=== PATIENT | female | born 1990 | race Caucasian/White ===

== ENCOUNTER 2018-06-02 18:45 | Emergency (ER) | payer SELFPAY ==
[~2018-06-02] VITALS: Ht 149.9 cm; Wt 61.2 kg
[~2018-06-02 18:45] MED LIST: AZITHROMYCIN250 MG PO; BACLOFEN10 MG PO; CYCLOBENZAPRINE10 MG PO; HYDROXYZINE HCL25 MG PO; IBUPROFEN800 MG PO; KLONOPIN1 MG PO; LORTAB 7.5-3251 EACH PO; NORCO 5-325 TA1 EACH PO; PERCOCET 5-3251 EACH PO; TRAMADOL HCL50 MG PO; VENTOLIN HFA18 GM INH; ZOFRAN ODT4 MG PO
[2018-06-02] MEDS ORDERED: TRAMADOL HCL50 MG PO (20:03)
[2018-06-02] MEDS ORDERED: CEPHALEXIN500 MG PO (20:03)
[2018-06-02] MEDS ORDERED: BACTRIM DS TAB1 EACH PO (20:03)
== END 2018-06-02 20:15 | disposition home or self-care (01) ==
LOC: ED 18:45
DX: L03.116 Cellulitis of left lower limb (principal); G43.909 Migraine, unspecified, not intractable, without status migrainosus; J45.909 Unspecified asthma, uncomplicated; F17.200 Nicotine dependence, unspecified, uncomplicated; Z88.8 Allergy status to other drugs, medicaments and biological substances; Z88.5 Allergy status to narcotic agent
CPT/HCPCS: 99283

== ENCOUNTER 2020-06-22 21:16 | Emergency (ER) | payer OTHER ==
[~2020-06-22] VITALS: Ht 149.9 cm; Wt 72.1 kg
[~2020-06-22 21:16] MED LIST changes: +BACTRIM DS TAB1 EACH PO; +CEPHALEXIN500 MG PO
[2020-06-22] MEDS ORDERED: LEXAPRO5 MG PO (21:38)
== END 2020-06-22 23:45 | disposition home or self-care (01) ==
LOC: ED 21:16
DX: N20.0 Calculus of kidney (principal); G43.909 Migraine, unspecified, not intractable, without status migrainosus; J45.909 Unspecified asthma, uncomplicated; Z88.8 Allergy status to other drugs, medicaments and biological substances; Z88.5 Allergy status to narcotic agent; Z79.899 Other long term (current) drug therapy
CPT/HCPCS: 74176; 81001; 84703; 96372; 99284-25; J1885